=== PATIENT | male | born 1960 | race Caucasian/White ===

== ENCOUNTER → 2023-02-22 08:26 | Outpatient (BNVA) | payer BC, SELFPAY | PROVIDERS: PCP Internal Medicine; Visit Provider Nurse Practitioner Family ==

== ENCOUNTER 2023-03-11 12:32 | Outpatient (REF) | payer BC, SELFPAY ==
--- NOTE | ~2023-03-11 | US_ITS ---
EXAMINATION: US RETROPERITONEAL LIMITED (RENAL ONLY) CLINICAL INFORMATION: Calculus of kidney. COMPARISON: None available. TECHNIQUE: Real-time imaging of the kidneys. FINDINGS: RIGHT KIDNEY: 10.6 x 6.0 x 4.7 cm (SAG x AP x TRV). The kidney is normal in size, contour, and echogenicity. Renal cortical thickness is normal. No focal parenchymal lesions or hydronephrosis. Nonobstructing 6 mm midpole stone. LEFT KIDNEY: 11.1 x 4.4 x 5.3 cm (SAG x AP x TRV). The kidney is normal in size, contour, and echogenicity. Renal cortical thickness is normal. No focal parenchymal lesions or hydronephrosis. Nonobstructing stones measuring up to 6 mm. US/US renal BI IMPRESSION: Bilateral nonobstructing nephrolithiasis. No hydronephrosis.
== END 2023-03-11 12:33 | disposition home or self-care (01) ==
LOC: HO.US 12:32
PROVIDERS: PCP Internal Medicine; Visit Provider Nurse Practitioner Family
DX: N20.0 Calculus of kidney (principal)
CPT/HCPCS: 76775

== ENCOUNTER → 2023-03-18 11:27 | Outpatient (BNVA) | payer BC, SELFPAY | PROVIDERS: PCP Internal Medicine; Visit Provider Nurse Practitioner Family ==

== ENCOUNTER 2023-07-28 11:40 | Outpatient (AMB) | payer BC, SELFPAY ==
--- NOTE | 2023-07-28 11:56 | MHC.OFFVIS ---
Intake Intake Visit Reasons: 3m/litholink/labs Intake Note: Patient is present for follow up kidney stone/labs/litholink results Urology Medications: Vitamin B6 Blood Thinner: none Electrical Calibrator Required: No Accompanied by: Self / Same As Patient Allergies No Known Allergies Allergy (Verified 07/28/23 16:49) Medication List - Last Reconciled 07/28/23 by RENAN Tompkins-MARTY atorvastatin 20 mg orally every couple days; baclofen 10 mg PO BID PRN lisinopril 20 mg PO DAILY meloxicam 15 mg PO DAILY PRN omeprazole 20 mg PO DAILY oxycodone-acetaminophen 5-325 mg 1 tab PO Q6H PRN pyridoxine (vitamin B6) 100 mg PO DAILY 90 days tamsulosin 0.4 mg PO DAILY HPI HPI Comments History of Present Illness Details Almas is a pleasant 63-year-old male patient of Dr. Worley. He has a past medical history of bilateral carpal tunnel syndrome, anxiety, depression, nephrolithiasis, hyperlipidemia, and hypertension. He is being seen today for a follow up of his nephrolithiasis. Recent Litholink results reviewed with the patient today. Extremely low urine volume noted at 0.64 L. discussed at length need to increase urine volume to above to to 2.5 L per day given history of nephrolithiasis. Discussed hypomagnesiuria, marked hypocitraturia and borderline low urine PH. Discussed previous stone calcium oxalate and importance of managing urine volume, calcium, an oxalate. Patient brings with him today stones that he has passed will send for further pathology testing. He currently denies any bothersome urinary issues. In office urinalysis results reviewed with the patient today. Discussed importance of increasing fluid intake and will reassess Litholink in 3 months with imaging to be completed prior. When asked patient denies urinary urgency, urinary frequency, incontinence, nocturia, hematuria, dysuria, foul smelling urine, changes to urinary stream, flank pain, fever, and or chills. He is happy with his current voiding parameters. Discussed at length potential causes for nephrolithiasis. Discussed and stressed importance of drinking adequate amount of fluid daily. Patient with long-standing history of nephrolithiasis however denies having surgical intervention for renal stones in the past. He discusses his hobby deer hunting. [facility] Medical History Bilateral carpal tunnel syndrome Anxiety and depression Kidney stones Hyperlipidemia Hypertension Surgical History Status post hammertoe correction History of total hip replacement Status post lumbar and lumbosacral fusion by anterior technique Review of Systems Const Reports as per HPI Eyes Reports no additional complaints ENT Reports no additional complaints Card Reports as per HPI Resp Reports no additional complaints GI Reports no additional complaints Reports as per HPI Musc Reports as per HPI Neuro Reports as per HPI Psych Reports as per HPI Endo Reports no additional complaints Taran/Lymph Reports no additional complaints Aller/Immun Reports no additional complaints Physical Exam Const General: cooperative, healthy appearing, comfortable, no acute distress, well developed, alert and awake Orientation/consciousness: patient oriented x3 Limitations: no limitations HEENT Head: Yes normal to inspection, Yes normocephalic and Yes atraumatic Ears: hearing grossly normal bilaterally Eyes General: appearance normal, both eyes and all related structures Neck Neck: Yes normal visual inspection and Yes trachea midline Chest Chest palpation & inspection: normal inspection of the chest Resp Effort & Inspection: normal respiratory effort and able to speak in complete sentences Cardio Rate: regular rate GI Inspection: Yes normal to inspection General: Yes no CVA tenderness Back/Spine/Pelvis Back: no CVA tenderness Skin General skin exam: no rashes or lesions noted Neuro General: patient oriented x3 Extrem General: Yes normal to inspection Psych Appearance: grossly normal and well kempt Mental Status: mental status grossly normal Speech and movement: Normal speech and movement present and Clear speech present Affect: normal affect Attitude: cooperative Thought process: Normal thought process present Thought content: Normal thought content present Insight: Fair insight present (Psych) Judgement: Fair judgement present (Psych) Results AMB Urinalysis, Automated UA Leukoctes 15 Jamilah/uL Last Edit by Janett Rouse on 07/28/23 12:30 UA Nitrite Negative Last Edit by Janett Rouse on 07/28/23 12:30 UA Urobilinogen 0.2 mg/dL Last Edit by Janett Rouse on 07/28/23 12:30 UA Protein 15 mg/dL Last Edit by Janett Rouse on 07/28/23 12:30 UA pH 6.0 Last Edit by Janett Rouse on 07/28/23 12:30 UA Blood 25 John/uL Last Edit by Janett Rouse on 07/28/23 12:30 UA Specific [place] 1.015 Last Edit by Janett Rouse on 07/28/23 12:30 UA Ketone Negative Last Edit by Janett Rouse on 07/28/23 12:30 UA Bilirubin 1 mg/dL Last Edit by Janett Rouse on 07/28/23 12:30 UA Glucose 1 mg/dL Last Edit by Janett Rouse on 07/28/23 12:30 Results Reviewed Results Reviewed: Laboratory Last Values Urine pH (Auto) 6.0 07/28/23 12:01 Specific [place] (Auto) 1.015 07/28/23 12:01 Urine Protein (Auto) 15 mg/dL 07/28/23 12:01 Glucose (UA)(Auto) 1 mg/dL 07/28/23 12:01 Urine Ketones (Auto) Negative 07/28/23 12:01 Urine Blood (Auto) 25 John/uL 07/28/23 12:01 Urine Nitrite (Auto) Negative 07/28/23 12:01 Urine Bilirubin (Auto) 1 mg/dL 07/28/23 12:01 Urine Urobilinogen (Auto) 0.2 mg/dL 07/28/23 12:01 Leukocyte Esterase (Auto) 15 Jamilah/uL 07/28/23 12:01 Assessment & Plan Assessment & Plan (1) Kidney stones: Code(s): N20.0 - Calculus of kidney Plan In office urinalysis results reviewed with the patient today. Recent with a leak results reviewed with the patient today;as noted above Will send stones for stone analysis Discussed and stressed the importance of increasing fluid intake to increase urine volume to above to to 2.5 L per day Patient denies any bothersome urinary issues at this time. Continue vitamin B6 as discussed and prescribed. Will obtain Litholink in 3 months Renal ultrasound in 3 months Follow-up in 3 months with Litholink and imaging to be completed prior; or sooner with any issues, concerns, or questions. Orders: Orders AMB Urinalysis Automated Today Z13.9 - Encounter for screening, unspecified Surgical Today N20.0 - Calculus of kidney US renal BI 3 Months N20.0 - Calculus of kidney URORISK 3 Months N20.0 - Calculus of kidney Patient Instructions: The patient had an opportunity to ask questions regarding the treatment plan. All questions were answered. Physical exam, labs, and imaging were discussed and reviewed in detail. As well as risks, benefits, and discussion of treatment choices. No major barriers to understanding were identified. The patient expressed understanding and agreement with the above treatment plan. The patient was made aware they should contact our office by phone for worsening of their current condition, the appearance of new symptoms, or with any questions or concerns. Compliance is encouraged with any medications and follow up testing that is ordered. It is a privilege to be allowed the opportunity to participate in? your urological care.? Again, if you have any questions or concerns If you have any questions or concerns please do not hesitate to contact me. The office is [phone]. This note is constructed using voice recognition software. While every effort has been made to ensure accuracy form press operator errors may have been included. Yours sincerely, ROSANNE Tompkins Coding Level of Care Code Est Pt Level 3 (03765) Diagnoses Kidney stones N20.0
== END 2023-07-28 12:32 | disposition home or self-care (01) ==
PROVIDERS: PCP Internal Medicine; Visit Provider Nurse Practitioner Family
DX: Z13.9 Encounter for screening, unspecified (principal); N20.0 Calculus of kidney
CPT/HCPCS: 99213

== ENCOUNTER 2023-07-28 11:40 | Outpatient (REF) | payer BC, SELFPAY ==
[2023-08-04 21:00] LABS: Stone Source KIDNEY STONE
== END 2023-07-28 11:41 | disposition home or self-care (01) ==
LOC: HO.LNP 11:40
PROVIDERS: PCP Internal Medicine; Visit Provider Nurse Practitioner Family
DX: N20.0 Calculus of kidney (principal); Z79.899 Other long term (current) drug therapy
CPT/HCPCS: 81003; 82365; 88300